=== PATIENT | female | born 1965 ===

== ENCOUNTER 2017-04-02 16:31 | Emergency (ER) | payer OTHER ==
[2017-04-02 16:39] VITALS: BP 130/83; PULSE 72; RESP 16; TEMP 97.2; O2SAT 99
--- NOTE | 2017-04-02 17:41 | ED PDOC ---
HPI: Back Time Seen by Provider: 04/02/17 16:45 Chief Complaint (Nursing): Back Pain Chief Complaint (Provider): Neck pain History Per: Patient History/Exam Limitations: no limitations Onset/Duration Of Symptoms: Persistent Current Symptoms Are (Timing): Still Present Quality Of Discomfort: "Pain" Previous Symptoms: Neck Pain Additional Complaint(s): The patient is a 51yo female with past medical history of chronic neck pain, presents to the ED for evaluation of persistent neck pain. She reports she had a CT scan of her C-Spine done in January which indicated disk herniations. Patient states she has been taking 800mg Motrin for pain with minimal relief. Patient reports she has not followed up with a specialist for further care. No new pain , weakness, numbness or tingling. She offers no additional medical complaints. Past Medical History Reviewed: Historical Data, Nursing Documentation, Vital Signs Vital Signs: Last Vital Signs Temp 97.2 F L 04/02/17 16:36 Pulse 72 04/02/17 16:36 Resp 16 04/02/17 16:36 BP 130/83 04/02/17 16:36 Pulse Ox 99 04/02/17 16:36 - Medical History PMH: No Chronic Diseases - Surgical History Surgical History: No Surg Hx - Family History Family History: States: No Known Family Hx - Home Medications Home Medications: Ambulatory Orders Medication Instructions Recorded oxyCODONE/Acetaminophen [Percocet 1 ea PO Q6H PRN #15 tab 04/02/17 5/325 mg Tab] - Allergies Allergies/Adverse Reactions: Allergies Allergy/AdvReac Type Severity Reaction Status Date / Time No Known Allergies Allergy Verified 04/02/17 16:39 Review of Systems ROS Statement: Except As Marked, All Systems Reviewed And Found Negative Musculoskeletal: Positive for: Neck Pain Neurological: Negative for: Weakness, Numbness Physical Exam - Reviewed Nursing Documentation Reviewed: Yes Vital Signs Reviewed: Yes - Physical Exam Appears: Positive for: Well, Non-toxic, No Acute Distress Head Exam: Positive for: ATRAUMATIC, NORMAL INSPECTION, NORMOCEPHALIC Skin: Positive for: Normal Color Eye Exam: Positive for: Normal appearance Neck: Positive for: Normal, Supple Cardiovascular/Chest: Positive for: Regular Rate, Rhythm Respiratory: Positive for: Normal Breath Sounds. Negative for: Respiratory Distress Neurologic/Psych: Positive for: Alert, Oriented. Negative for: Motor/Sensory Deficits - ECG O2 Sat by Pulse Oximetry: 99 (RA) Pulse Ox Interpretation: Normal Medical Decision Making Medical Decision Making: Time: 1652 Impression: Chronic neck pain Plan: -- Percocet 1 tab PO -- Patient counseled on need for follow up due to the chronic nature of her pain. Patient given referrals to help with follow up. Scribe Attestation: Documented by Mckenzie Vega acting as a scribe for ADALI Dejesus Provider Attestation: All medical record entries made by the Scribe were at my direction and personally dictated by me. I have reviewed the chart and agree that the record accurately reflects my personal performance of the history, physical exam, medical decision making, and the department course for this patient. I have also personally directed, reviewed, and agree with the discharge instructions and disposition. Disposition - Clinical Impression Clinical Impression: Chronic neck pain - Disposition Referrals: [facility] Loera [Outside] [facility] [Outside] Disposition Time: 17:50 Condition: STABLE Additional Instructions: Please follow-up with neurologist. Prescriptions: oxyCODONE/Acetaminophen [Percocet 5/325 mg Tab] 1 ea PO Q6H PRN #15 tab PRN Reason: Pain, Severe (8-10) Instructions: Cervical Disc Herniation (ED) Forms: [employer] (Cameroonian)
[2017-04-02] MEDS ORDERED: Oxycodone/Acetaminophen 5/325 mg Tab PO STA (17:43)
[2017-04-02] MEDS ORDERED: Oxycodone/Acetaminophen 5/325 mg Tab ONE (17:51)
== END 2017-04-02 18:00 | disposition home or self-care (01) ==
LOC: H.ER 16:31
DX: M54.2 Cervicalgia (principal); G89.29 Other chronic pain

== ENCOUNTER 2017-04-16 10:56 | Inpatient (IN) | payer OTHER ==
[2017-04-16 12:38] LABS: BASO % 0.8 % (0.0-2.0); EOS # 0.3 K/uL (0.0-0.7); EOS % 4.6 % (0.0-4.0); HEMATOCRIT 34.9 % (34.0-47.0); LYMPH # 1.9 K/uL (1.0-4.3); LYMPH % 33.7 % (20.0-40.0); MEAN CELL VOLUME 93.6 fl (81.0-99.0); MEAN CORPUSCULAR HEMOGLOBIN 31.8 pg (27.0-31.0); MEAN PLATELET VOLUME 8.7 fl (7.2-11.7); MONO # 0.4 K/uL (0.0-0.8); MONO % 6.9 % (0.0-10.0); NEUT # 3.1 K/uL (1.8-7.0); NRBC % 0.1 % (0.0-0.0); WHITE BLOOD COUNT 5.8 K/uL (4.8-10.8)
[2017-04-16 12:49] LABS: BLOOD UREA NITROGEN 19 mg/dl (7-17); CALCIUM 9.2 mg/dL (8.4-10.2); CARBON DIOXIDE 25 mmol/L (22-30); CHLORIDE 106 mmol/L (98-107); GFR AFRICAN-AMERICAN > 60; GLUCOSE,RANDOM 84 mg/dL (65-105); POTASSIUM 3.8 MMOL/L (3.6-5.0); SODIUM 140 mmol/l (132-148)
[2017-04-16 12:58] LABS: PARTIAL THROMBOPLASTIN TIME 30.5 Seconds (25.6-37.1)
[2017-04-16 14:02] LABS: URINE BILIRUBIN NEGATIVE (NEGATIVE); URINE BLOOD MODERATE (NEGATIVE); URINE COLOR STRAW (YELLOW); URINE GLUCOSE (UA) NEG (Normal); URINE KETONE NEGATIVE (NEGATIVE); URINE LEUKOCYTE ESTERASE NEG Leu/uL (Negative); URINE PROTEIN NEGATIVE (NEGATIVE); URINE UROBILINOGEN 0.2-1.0 mg/dL (0.2-1.0); WBC URINE < 1 /hpf (0-5)
[2017-04-16 14:05] LABS: RBC URINE 15 /hpf (0-3)
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
--- NOTE | 2017-04-16 15:26 | RAD ---
HISTORY: neck pain COMPARISON: No prior. TECHNIQUE: Chest PA and lateral FINDINGS: LUNGS: No active pulmonary disease. PLEURA: No significant pleural effusion identified. No pneumothorax apparent. CARDIOVASCULAR: Normal. OSSEOUS STRUCTURES: No significant abnormalities. VISUALIZED UPPER ABDOMEN: Normal. OTHER FINDINGS: None. IMPRESSION: No active disease.
--- NOTE | 2017-04-16 18:27 | CARD ---
APPROVED REPORT EKG Measurement Heart [id number] <Conclusion> Normal sinus rhythm Normal ECG
[2017-04-16] MEDS ORDERED: Dextrose 5%/0.9% NS 1,000 ML IV SCH (22:00)
[2017-04-17] MEDS ORDERED: Dextrose 5%/0.9% NS 1,000 ML IV SCH ×2 (06:00→10:21)
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
[2017-04-17] MEDS ORDERED: Rocuronium 10 mg/ml (5 ml) ONE (07:04)
[2017-04-17] MEDS ORDERED: Phenylephrine 10 mg/ml Inj ONE (07:04)
[2017-04-17] MEDS ORDERED: Lidocaine 2% MPF (5 ml) Inj ONE (07:04)
[2017-04-17] MEDS ORDERED: Propofol 10 mg/ml Inj (20 ML) ONE (07:04)
[2017-04-17] MEDS ORDERED: ePHEDrine 50 mg/ml Inj ONE (07:04)
[2017-04-17] MEDS ORDERED: Midazolam 2 MG/2 ML VIAL ONE (07:04)
[2017-04-17] MEDS ORDERED: Absorbable Gelatin Sponge Size 100 ONE (07:14)
[2017-04-17] MEDS ORDERED: Thrombin Topical 5,000 IU Spray Kit ONE (07:14)
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
[2017-04-17] MEDS ORDERED: Lactated Ringer's 1,000 ML IV ONE ×2 (07:45→07:50)
[2017-04-17] MEDS ORDERED: Neostigmine Methylsulfate 2 MG/2 ML ML IV ONE (08:18)
[2017-04-17] MEDS ORDERED: HEMOSTATIC MATRIX 10 ML DIS.NEEDLE TOP ONE (08:33)
[2017-04-17] MEDS ORDERED: Dexamethasone 4 mg/1 ml IVP PRN (09:25)
[2017-04-17] MEDS: HYDROmorphone 0.5 mg/0.5 ml ISec IVP PRN ×4 (10:24→10:46)
--- NOTE | 2017-04-17 14:45 | RAD ---
PROCEDURE: Intraoperative Fluoroscopy. HISTORY: ACDF FINDINGS: Fluoroscopic assistance was provided. 13.8 seconds fluoroscopy time utilized during this procedure. Radiation dose = 1.11 mGy Please refer to the operative report for additional details
[2017-04-17] MEDS: Benzocaine/Menthol (Cepacol) Lozenge PO PRN (15:32)
[2017-04-17] MEDS: ceFAZolin 1 GM in Sodium Chloride 0.9% 100 ML IVPB SCH (16:50)
[2017-04-17] MEDS: Dextrose 5%/Lactated Ringer's 1,000 ML IV SCH (16:51)
[2017-04-18] MEDS: ceFAZolin 1 GM in Sodium Chloride 0.9% 100 ML IVPB SCH ×3 (00:10→18:07)
[2017-04-18] MEDS: Dextrose 5%/Lactated Ringer's 1,000 ML IV SCH (03:00)
[2017-04-18 07:00] LABS: BASO % 0.1 % (0.0-2.0); EOS % 0.2 % (0.0-4.0); LYMPH # 1.5 K/uL (1.0-4.3); LYMPH % 13.8 % (20.0-40.0); MEAN CELL VOLUME 92.3 fl (81.0-99.0); MEAN CORPUSCULAR HEMOGLOBIN 31.9 pg (27.0-31.0); MEAN CORPUSCULAR HGB CONC 34.5 g/dL (33.0-37.0); MEAN PLATELET VOLUME 8.5 fl (7.2-11.7); MONO # 0.8 K/uL (0.0-0.8); MONO % 7.5 % (0.0-10.0); NEUT # 8.7 K/uL (1.8-7.0); NEUT % 78.4 % (50.0-75.0); RED CELL DISTRIBUTION WIDTH 13.1 % (11.5-14.5); WHITE BLOOD COUNT 11.2 K/uL (4.8-10.8)
[2017-04-18 07:09] LABS: BLOOD UREA NITROGEN 9 mg/dl (7-17); CALCIUM 9.4 mg/dL (8.4-10.2); CARBON DIOXIDE 24 mmol/L (22-30); CHLORIDE 105 mmol/L (98-107); GFR AFRICAN-AMERICAN > 60; GLUCOSE,RANDOM 113 mg/dL (65-105); POTASSIUM 3.4 MMOL/L (3.6-5.0); SODIUM 141 mmol/l (132-148)
[2017-04-18] MEDS ORDERED: Potassium Chloride 20 mEq ER Tab PO ONE (07:23)
--- NOTE | 2017-04-18 09:01 | OP ---
PROCEDURE DATE: 04/16/2017 PREOPERATIVE DIAGNOSIS: Cervical spondylosis with myelopathy. POSTOPERATIVE DIAGNOSIS: Cervical spondylosis with myelopathy. SURGEON: Frederick Lara MD REFRIGERATION SYSTEMS INSTALLER: Taylor Alarcon PA-C, who stayed throughout the case from the beginning to the end and help perform the surgery. PROCEDURE: Partial vertebrectomy of C4, C5, and C6; diskectomy of C4-C5, C5-C6; interbody fusion of C4-C5, C5-C6 using PEEK and bone; plating and instrumentation from C4-C6 using an Amendia plate; fluoroscopy has been used; microscope has been used. DESCRIPTION OF PROCEDURE: The patient was brought to the operating room, administered general endotracheal anesthesia, and placed in a supine position. Head was placed in a doughnut. Care was taken to protect all pressure points. Right side of the neck was thoroughly prepped and draped in same sterile manner after marking the skin incisions for cervical vertebrectomy. After prepping and draping the area, the subcutaneous skin has been bipolar coagulated. After using a [employer]ie auto brake mechanic, platysma has been cut, dissection has been carried out between trachea and esophagus medially and sternomastoid carried out laterally. Prevertebral fascia has been cauterized and cut. Identification of the levels has been done with the help of fluoroscopy. Longus colli has been detached. The attachment of vertebral bodies at C4, C5, C6 have been applied. Rest of the operation had been examination. PARTIAL VERTEBRECTOMY OF C4, C5 AND C6, DISKECTOMY OF C4, C5 AND C6: By using a high speed drill, the vertebral bodies of C4 and C5 have been drilled and partial vertebrectomy including removal of the cartilage and plates have been performed. Intermittent diskectomy has been performed. There were bony spurs that have been removed. Posterior longitudinal has been opened, dura has been taken from side to side after removing all the disk material. Similarly at C5-C6 partial vertebrectomy including removal of the cartilage and plates has been performed. Partial vertebrectomy was done along with the diskectomy and bony spurs have been removed by using high speed drill. Posterior longitudinal has been opened, dura has been taken from side to side. INTERBODY FUSION OF C4-C5, C5-C6 USING PEEK AND BONE: Two pieces of two PEEK implant have been brought in, they have been tapped and space created at the partial vertebrectomy of C4-C5 and C5-C6. Position has been confirmed to be good and Amendia plate has been placed at vertebral bodies of C4-C6 by using 12 mm screw, it has been secured and fluoroscopy is controlled. After that Hemostasis was best achieved. Stanislav drain placed on the wound and brought out through a separate stab skin incision. Platysma closed with 3-0 Vicryl. Skin had been closed with intradermal 3 Vicryl stitches. The patient tolerated the procedure. After procedure, mobilized to recovery room in stable condition. Frederick Lara MD
--- NOTE | 2017-04-18 09:55 | CP.PCM.PN ---
Subjective - Date & Time of Evaluation Date of Evaluation: 04/18/17 Time of Evaluation: 09:53 - Subjective Subjective: patient is doing well Has no chest pain or SOB Still with some urinary retention Has minimal pain on the surg sites Has minimal drain afebrile. Objective - Vital Signs/Intake and Output Vital Signs (last 24 hours): Temp Pulse Resp BP Pulse Ox 98.3 F 76 18 121/81 99 04/18/17 08:16 04/18/17 08:16 04/18/17 08:16 04/18/17 08:16 04/18/17 08:16 Intake and Output: 04/18/17 04/18/17 06:59 18:59 Intake Total 1500 Output Total 985 Balance 515 - Medications Medications: Current Medications Benzocaine/Menthol (Cepacol Sore Throat) 1 nereida PO Q3 PRN PRN Reason: Sore Throat Last Admin: 04/17/17 15:32 Dose: 1 nereida Docusate Sodium (Colace) 100 mg PO BID [facility] Cefazolin Sodium 1 gm/ Sodium (Chloride) 100 mls @ 100 mls/hr IVPB Q8 [facility] Last Admin: 04/18/17 09:10 Dose: 100 mls/hr Dextrose/Lactated Ringer's (Dextrose 5%/Lactated Ringer's) 1,000 mls @ 100 mls/ hr IV .Q10H [facility] Stop: 04/18/17 16:11 Last Admin: 04/18/17 03:00 Dose: 100 mls/hr Ondansetron HCl (Zofran Inj) 4 mg IVP Q6 PRN PRN Reason: Nausea/Vomiting Last Admin: 04/18/17 00:09 Dose: 4 mg Oxycodone/Acetaminophen (Percocet 5/325 Mg Tab) 2 tab PO Q4 PRN PRN Reason: Pain, moderate (4-7) Stop: 04/20/17 13:09 Pantoprazole Sodium (Protonix Inj) 40 mg IVP DAILY [facility] Last Admin: 04/18/17 09:10 Dose: 40 mg - Labs Labs: 04/18/17 05:00 04/18/17 05:00 PT 11.1 Seconds (9.8-13.1) 04/16/17 12:33 INR 1.1 (0.9-1.2) 04/16/17 12:33 APTT 30.5 Seconds (25.6-37.1) 04/16/17 12:33 - Head Exam Head Exam: NORMAL INSPECTION - Eye Exam Eye Exam: Normal appearance - ENT Exam ENT Exam: Mucous Membranes Moist - Respiratory Exam Respiratory Exam: Clear to Ausculation Bilateral - Cardiovascular Exam Cardiovascular Exam: REGULAR RHYTHM - GI/Abdominal Exam GI & Abdominal Exam: Normal Bowel Sounds - Neurological Exam Neurological Exam: Awake, Oriented x3 - Psychiatric Exam Psychiatric exam: Normal Mood Assessment and Plan (1) Herniated cervical disc Status: Acute (2) Intractable abdominal pain Status: Acute - Assessment and Plan (Free Text) Plan: cont meds cont tx PT eval pain med transfer to regular floor,
[2017-04-18] MEDS: Oxycodone/Acetaminophen 5/325 mg Tab PO PRN ×2 (15:19→21:19)
--- NOTE | 2017-04-18 15:48 | CP.PCM.PN ---
Subjective - Date & Time of Evaluation Date of Evaluation: 04/18/17 Time of Evaluation: 14:00 - Subjective Subjective: pt c/o incisional pain partially alleviated with pain IV pain meds,currently changed to PO Percocet and Flexeril,wally diet,amb with minimal asst,pre op symptoms improved,urinary retension last pm,straight cath and currently voiding , + flatus. Objective - Vital Signs/Intake and Output Vital Signs (last 24 hours): Temp Pulse Resp BP Pulse Ox 98.5 F 65 18 122/78 100 04/18/17 12:35 04/18/17 12:35 04/18/17 12:35 04/18/17 12:35 04/18/17 12:35 Intake and Output: 04/18/17 04/18/17 06:59 18:59 Intake Total 1500 Output Total 985 Balance 515 - Medications Medications: Current Medications Benzocaine/Menthol (Cepacol Sore Throat) 1 nereida PO Q3 PRN PRN Reason: Sore Throat Last Admin: 04/17/17 15:32 Dose: 1 nereida Cyclobenzaprine HCl (Flexeril) 10 mg PO TID PRN PRN Reason: Muscle spasm Docusate Sodium (Colace) 100 mg PO BID [facility] Last Admin: 04/18/17 12:10 Dose: Not Given Cefazolin Sodium 1 gm/ Sodium (Chloride) 100 mls @ 100 mls/hr IVPB Q8 [facility] Last Admin: 04/18/17 09:10 Dose: 100 mls/hr Dextrose/Lactated Ringer's (Dextrose 5%/Lactated Ringer's) 1,000 mls @ 100 mls/ hr IV .Q10H [facility] Stop: 04/18/17 16:11 Last Admin: 04/18/17 03:00 Dose: 100 mls/hr Ondansetron HCl (Zofran Inj) 4 mg IVP Q6 PRN PRN Reason: Nausea/Vomiting Last Admin: 04/18/17 00:09 Dose: 4 mg Oxycodone/Acetaminophen (Percocet 5/325 Mg Tab) 2 tab PO Q4 PRN PRN Reason: Pain, moderate (4-7) Stop: 04/20/17 13:09 Last Admin: 04/18/17 15:19 Dose: 2 tab Pantoprazole Sodium (Protonix Inj) 40 mg IVP DAILY [facility] Last Admin: 04/18/17 09:10 Dose: 40 mg - Labs Labs: 04/18/17 05:00 04/18/17 05:00 PT 11.1 Seconds (9.8-13.1) 04/16/17 12:33 INR 1.1 (0.9-1.2) 04/16/17 12:33 APTT 30.5 Seconds (25.6-37.1) 04/16/17 12:33 - Constitutional Appears: Well, Non-toxic, No Acute Distress - Head Exam Head Exam: ATRAUMATIC, NORMAL INSPECTION, NORMOCEPHALIC - Eye Exam Eye Exam: EOMI, PERRL Pupil Exam: PERRL - ENT Exam ENT Exam: Mucous Membranes Moist - Neck Exam Additional comments: incision C/D/I, DIEUDONNE draining serosanguinos drainage,no s/o hematoma,phonating well,soft collar patent - Respiratory Exam Respiratory Exam: Clear to Ausculation Bilateral - Cardiovascular Exam Cardiovascular Exam: REGULAR RHYTHM, +S1, +S2 - GI/Abdominal Exam GI & Abdominal Exam: Soft - Rectal Exam Rectal Exam: Deferred - Back Exam Back Exam: NORMAL INSPECTION - Neurological Exam Neurological Exam: Alert, Oriented x3 Additional comments: DAY x 4 antigravity with good strength,sensation intact - Psychiatric Exam Psychiatric exam: Normal Affect, Normal Mood - Skin Skin Exam: Dry, Intact Assessment and Plan - Assessment and Plan (Free Text) Assessment: 51 yo female s/p ACDF C4-5,C5-6 for cervical spondylosis and myelopathy, Neurologically stable with post op pain Plan: cont to monitor,will d/c drain in am,trial of PO pain meds if minimal relief in pain will get pain management eval,all d/w Dr. Lara
[2017-04-19] MEDS: ceFAZolin 1 GM in Sodium Chloride 0.9% 100 ML IVPB SCH ×3 (00:32→16:31)
[2017-04-19] MEDS: Benzocaine/Menthol (Cepacol) Lozenge PO PRN ×2 (09:32→14:23)
[2017-04-19] MEDS ORDERED: Pneumococcal 23-Valent Vaccine IM ONE (12:21)
[2017-04-19 13:55] LABS: BLOOD UREA NITROGEN 13 mg/dl (7-17); CALCIUM 9.4 mg/dL (8.4-10.2); CARBON DIOXIDE 26 mmol/L (22-30); CHLORIDE 104 mmol/L (98-107); GFR AFRICAN-AMERICAN > 60; GLUCOSE,RANDOM 91 mg/dL (65-105); SODIUM 140 mmol/l (132-148)
[2017-04-19] MEDS: Oxycodone/Acetaminophen 5/325 mg Tab PO PRN (14:19)
--- NOTE | 2017-04-19 15:26 | CP.PCM.DIS ---
Provider - Provider Date of Admission: 04/16/17 13:20 Attending physician: Blair Miles MD Time Spent in preparation of Discharge (in minutes): 35 Diagnosis - Discharge Diagnosis (1) Herniated cervical disc Status: Chronic Comment: s/p laminectomy Hospital Course - Lab Results Lab Results: Most Recent Lab Values WBC 11.2 K/uL (4.8-10.8) H D 04/18/17 05:00 RBC 3.79 Mil/uL (3.80-5.20) L 04/18/17 05:00 Hgb 12.1 g/dL (12.0-16.0) 04/18/17 05:00 Hct 35.0 % (34.0-47.0) 04/18/17 05:00 MCV 92.3 fl (81.0-99.0) 04/18/17 05:00 MCH 31.9 pg (27.0-31.0) H 04/18/17 05:00 MCHC 34.5 g/dL (33.0-37.0) 04/18/17 05:00 RDW 13.1 % (11.5-14.5) 04/18/17 05:00 Plt Count 189 K/uL (130-400) 04/18/17 05:00 MPV 8.5 fl (7.2-11.7) 04/18/17 05:00 Neut % (Auto) 78.4 % (50.0-75.0) H 04/18/17 05:00 Lymph % (Auto) 13.8 % (20.0-40.0) L 04/18/17 05:00 [place] % (Auto) 7.5 % (0.0-10.0) 04/18/17 05:00 Eos % (Auto) 0.2 % (0.0-4.0) 04/18/17 05:00 Baso % (Auto) 0.1 % (0.0-2.0) 04/18/17 05:00 Neut # 8.7 K/uL (1.8-7.0) H 04/18/17 05:00 Lymph # 1.5 K/uL (1.0-4.3) 04/18/17 05:00 [place] # 0.8 K/uL (0.0-0.8) 04/18/17 05:00 Eos # 0.0 K/uL (0.0-0.7) 04/18/17 05:00 Baso # 0.0 K/uL (0.0-0.2) 04/18/17 05:00 PT 11.1 Seconds (9.8-13.1) 04/16/17 12:33 INR 1.1 (0.9-1.2) 04/16/17 12:33 APTT 30.5 Seconds (25.6-37.1) 04/16/17 12:33 Sodium 140 mmol/l (132-148) 04/19/17 13:39 Potassium 4.0 MMOL/L (3.6-5.0) 04/19/17 13:39 Chloride 104 mmol/L (98-107) 04/19/17 13:39 Carbon Dioxide 26 mmol/L (22-30) 04/19/17 13:39 Anion Gap 14 (10-20) 04/19/17 13:39 BUN 13 mg/dl (7-17) 04/19/17 13:39 Creatinine 0.7 mg/dL (0.7-1.2) 04/19/17 13:39 Est GFR ( Amer) > 60 04/19/17 13:39 Est GFR (Non-Af Amer) > 60 04/19/17 13:39 Random Glucose 91 mg/dL (65-105) 04/19/17 13:39 Calcium 9.4 mg/dL (8.4-10.2) 04/19/17 13:39 Urine Color Straw (YELLOW) 04/16/17 13:48 Urine Clarity Clear (Clear) 04/16/17 13:48 Urine pH 7.0 (5.0-8.0) 04/16/17 13:48 Ur Specific [place] 1.010 (1.003-1.030) 04/16/17 13:48 Urine Protein Negative mg/dL (NEGATIVE) 04/16/17 13:48 Urine Glucose (UA) Neg mg/dL (Normal) 04/16/17 13:48 Urine Ketones Negative mg/dL (NEGATIVE) 04/16/17 13:48 Urine Blood Moderate (NEGATIVE) 04/16/17 13:48 Urine Nitrate Negative (NEGATIVE) 04/16/17 13:48 Urine Bilirubin Negative (NEGATIVE) 04/16/17 13:48 Urine Urobilinogen 0.2-1.0 mg/dL (0.2-1.0) 04/16/17 13:48 Ur Leukocyte Esterase Neg [place]/uL (Negative) 04/16/17 13:48 Urine RBC (Auto) 15 /hpf (0-3) H 04/16/17 13:48 Urine Microscopic WBC < 1 /hpf (0-5) 04/16/17 13:48 Ur Squamous Epith Cells 2 /hpf (0-5) 04/16/17 13:48 Blood Type O POSITIVE 04/16/17 16:45 Blood Type Confirm O POSITIVE 04/16/17 14:10 Antibody Screen Negative 04/16/17 16:45 BBK History Checked Patient has bt 04/16/17 16:45 - Hospital Course Hospital Course: 51 year old female with hx of herniated cervical disc s/p laminectomy. Patient feels well today. DIEUDONNE drain removed today. Pt stable for discharge home. ER precautions given. - Date & Time of H&P Date of H&P: 04/17/17 Time of H&P: 06:46 Discharge Exam - Head Exam Head Exam: ATRAUMATIC, NORMOCEPHALIC - ENT Exam Additional comments: cervical collar in place. dressing on right neck is dry and intact. - Respiratory Exam Respiratory Exam: UNREMARKABLE - Cardiovascular Exam Cardiovascular Exam: REGULAR RHYTHM, +S1, +S2 - GI/Abdominal Exam GI & Abdominal Exam: Unremarkable. absent: Distended, Guarding - Rectal Exam Rectal Exam: Deferred - Neurological Exam Neurological exam: Alert, Normal Gait, Oriented x3 - Psychiatric Exam Psychiatric exam: Normal Affect, Normal Mood - Skin Skin Exam: Dry, Normal Color Additional comments: dressing in place Discharge Plan - Follow Up Plan Condition: FAIR Disposition: HOME/ ROUTINE Instructions: Anterior Cervical Discectomy (DC) Additional Instructions: Keep soft cervical collar on at all times, change dressing daily and keep dry at all times. Regular diet. Follow-up with Dr. Lara in 3 weeks to call for appointment.Mireya parra-up with Dr Miles [place] 2016 to call for appt. time Pls refer to anterior cervical dissection fusion discharge instruction handouts. Referrals: Frederick Lara MD [Staff Provider] - Blair Miles MD [Staff Provider] -
[2017-04-19 15:43] VITALS: BP 125/81; PULSE 69; RESP 20; TEMP 98.7; O2SAT 97
--- NOTE | 2017-04-19 16:39 | CP.PCM.PN ---
Subjective - Date & Time of Evaluation Date of Evaluation: 04/19/17 Time of Evaluation: 09:00 - Subjective Subjective: pt with incisional neck pain better controlled with PO pain meds and muscle relaxers,wally diet,pre op symptoms improved,amb without asst,+ voiding without c/ o,+ flatus Objective - Vital Signs/Intake and Output Vital Signs (last 24 hours): Temp Pulse Resp BP Pulse Ox 98.7 F 69 20 125/81 97 04/19/17 16:18 04/19/17 16:18 04/19/17 16:18 04/19/17 16:18 04/19/17 16:18 Intake and Output: 04/19/17 04/19/17 06:59 18:59 Output Total 20 Balance -20 - Medications Medications: Current Medications Benzocaine/Menthol (Cepacol Sore Throat) 1 nereida PO Q3 PRN PRN Reason: Sore Throat Last Admin: 04/19/17 14:23 Dose: 1 nereida Cyclobenzaprine HCl (Flexeril) 10 mg PO TID PRN PRN Reason: Muscle spasm Docusate Sodium (Colace) 100 mg PO BID [facility] Last Admin: 04/19/17 16:32 Dose: 100 mg Cefazolin Sodium 1 gm/ Sodium (Chloride) 100 mls @ 100 mls/hr IVPB Q8 [facility] Last Admin: 04/19/17 16:31 Dose: 100 mls/hr Ondansetron HCl (Zofran Inj) 4 mg IVP Q6 PRN PRN Reason: Nausea/Vomiting Last Admin: 04/18/17 00:09 Dose: 4 mg Oxycodone/Acetaminophen (Percocet 5/325 Mg Tab) 2 tab PO Q4 PRN PRN Reason: Pain, moderate (4-7) Stop: 04/20/17 13:09 Last Admin: 04/19/17 14:19 Dose: 2 tab Pantoprazole Sodium (Protonix Inj) 40 mg IVP DAILY [facility] Last Admin: 04/19/17 09:32 Dose: 40 mg - Labs Labs: 04/18/17 05:00 04/19/17 13:39 PT 11.1 Seconds (9.8-13.1) 04/16/17 12:33 INR 1.1 (0.9-1.2) 04/16/17 12:33 APTT 30.5 Seconds (25.6-37.1) 04/16/17 12:33 - Constitutional Appears: Well, Non-toxic, No Acute Distress - Head Exam Head Exam: ATRAUMATIC, NORMAL INSPECTION, NORMOCEPHALIC - Eye Exam Eye Exam: EOMI Additional comments: right pupil 2-3 and reactive,EOMI,+ left eye prosthesis - ENT Exam ENT Exam: Mucous Membranes Moist - Neck Exam Additional comments: wound C/D/I ,no drainage/erythema or warmth,DIEUDONNE d/c dressing changed - Respiratory Exam Respiratory Exam: Clear to Ausculation Bilateral - Cardiovascular Exam Cardiovascular Exam: REGULAR RHYTHM, +S1, +S2 - GI/Abdominal Exam GI & Abdominal Exam: Soft, Normal Bowel Sounds - Extremities Exam Extremities Exam: Normal Capillary Refill, Normal Inspection - Back Exam Back Exam: NORMAL INSPECTION - Neurological Exam Neurological Exam: Alert, Oriented x3 Additional comments: DAY x 4 antigravity with good strength,sensation grossly intact - Psychiatric Exam Psychiatric exam: Normal Affect, Normal Mood - Skin Skin Exam: Dry, Intact Assessment and Plan - Assessment and Plan (Free Text) Assessment: 51 yo female POD#2 ACDF C4-5,C5-6 for Spondylosis and myelopathy/Neurologically Stable Plan: pt to be d/c home today with family and f/u with PMD and Dr. Lara,wound care instructions d/w pt,told to resume soft diet,pain scipts given by Dr. Miles, all d/w Dr. Lara
== END 2017-04-19 19:10 | disposition home or self-care (01) | DRG 864 ==
LOC: H.ER 10:56 → H.ERHOLD 13:20 → H.MEDSURG1 17:24 → H.TEL 04-17 11:54
PROVIDERS: ADMIT Family Medicine; ATTEND Family Medicine
PROC: 0RG20A0 Fusion of 2 or more Cervical Vertebral Joints with Interbody Fusion Device, Anterior Approach, Anterior Column, Open Approach (ICD-10-PCS; principal; 2017-04-16)
PROC: 0RB30ZZ Excision of Cervical Vertebral Disc, Open Approach (ICD-10-PCS; 2017-04-16)
DX: M50.021 Cervical disc disorder at C4-C5 level with myelopathy (principal); M47.12 Other spondylosis with myelopathy, cervical region; G89.29 Other chronic pain; Z90.710 Acquired absence of both cervix and uterus; R33.9 Retention of urine, unspecified